=== PATIENT | male | born 1970 | race Caucasian/White ===

== ENCOUNTER → 2019-04-30 | Outpatient (CLI) | payer OTHER ==
--- NOTE | 2019-04-30 11:37 | KCIC ---
EXAMINATION: Magnetic resonance imaging (MRI) of the cervical spine without contrast 04/30/2019 11:00 AM HISTORY: Long-standing bilateral upper extremity radicular pain TECHNIQUE: Multiplanar multi-weighted MRI of the cervical spine was performed without intravenous contrast using the standard cervical spine protocol. Contrast information: None administered COMPARISON: None available. FINDINGS: The alignment of the cervical spine is normal. Vertebral bodies demonstrate normal signal intensity on all sequences. No acute fracture is identified; however, if trauma is suspected, a CT scan would be a more sensitive examination for fractures. The craniocervical junction is normal. The visualized portions of the skull base and the posterior fossa are normal. The spinal cord demonstrates normal signal intensity on all sequences. Intervertebral disks have normal height and signal intensity. There are no annular fissures identified. No soft tissue abnormality is identified. Normal signal voids are present in the vertebral arteries. C2-C3: The disk is normal in configuration. There is no facet arthropathy. There is no uncovertebral joint disease. There is no neuroforaminal stenosis. There is no spinal canal stenosis. C3-C4: Mild disc bulge. There is mild left facet arthropathy. There is no uncovertebral joint disease. There is mild left neuroforaminal stenosis. There is no spinal canal stenosis. C4-C5: There is minimal posterior disc osteophyte complex. There is mild facet arthropathy. There is mild uncovertebral joint disease. There is mild, right greater than left, neuroforaminal stenosis. There is no spinal canal stenosis. C5-C6: Mild disc bulge There is no facet arthropathy. There is no uncovertebral joint disease. There is no neuroforaminal stenosis. There is no spinal canal stenosis. C6-C7: The disk is normal in configuration. There is no facet arthropathy. There is no uncovertebral joint disease. There is no neuroforaminal stenosis. There is no spinal canal stenosis. C7-T1: The disk is normal in configuration. There is no facet arthropathy. There is no uncovertebral joint disease. There is no neuroforaminal stenosis. There is no spinal canal stenosis. IMPRESSION: Mild degenerative changes of the cervical spine as described in detail above. Electronically signed by: Susan Mcmillan MD (04/30/2019 11:34 AM) [id number]
--- NOTE | 2019-04-30 12:53 | KCIC ---
Examination: MRI of the left shoulder without contrast HISTORY: History of left shoulder pain, weakness COMPARISON: None available Technique: Multiplanar, multisequence MR imaging of the left shoulder performed without contrast. FINDINGS: The long head of the biceps tendon within the bicipital groove. The attachment of the long head the biceps tendon to the superior labral anchor grossly appears intact. The attachment of the subscapularis tendon grossly appears intact. Small focus of full-thickness tear identified in the supraspinatus tendon, measuring 9 mm in AP dimension with extension of fluid in the subacromial subdeltoid bursa. Moderate increased T2 signal identified in the rotator cuff likely secondary to tendinosis. Mild increased signal identified throughout the labrum likely degenerative changes. Small shoulder joint effusion identified. The muscle bulk grossly appears unremarkable. The acromion is type II. Mild degenerative changes identified in the carpometacarpal joint, glenohumeral joint. There is mild obscuration of fat in the rotator interval. IMPRESSION: 1. Small focus of full-thickness tear of the supraspinatus tendon with extension of fluid into the subacromial/ subdeltoid bursa. 2. Moderate tendinosis. 3. Mild degenerative changes acromioclavicular joint, glenohumeral joint. 4. Mild obscuration of fat in the rotator interval. Correlate for adhesive capsulitis. Electronically signed by: Gómez Correa MD (04/30/2019 12:50 PM) [id number]
== END | disposition home or self-care (01) ==
LOC: KCIC MRI 09:53
PROVIDERS: ATTEND Orthopaedic Surgery
DX: M47.812 Spondylosis without myelopathy or radiculopathy, cervical region (principal); M50.21 Other cervical disc displacement, high cervical region; M48.02 Spinal stenosis, cervical region; M25.78 Osteophyte, vertebrae; M19.012 Primary osteoarthritis, left shoulder; M75.102 Unspecified rotator cuff tear or rupture of left shoulder, not specified as traumatic; M25.412 Effusion, left shoulder; M77.8 Other enthesopathies, not elsewhere classified
CPT/HCPCS: 72141; 73221